=== PATIENT | female | born 1950 | race Caucasian/White ===

== ENCOUNTER 2020-03-10 12:35 | Emergency (ER) | payer MEDICARE, OTHER ==
[~2020-03-10] VITALS: Ht 165.1 cm; Wt 77.1 kg
--- OUTSIDE RECORDS SUMMARY | ~2020-03-10 | XMS | Encounter Summary ---
Demographics + + + | Address | [address] | | | [place] [address] | + + + | Home Phone | | + + + | Preferred Language | Unknown | + + + | Marital Status | Unknown | + + + | Druze Affiliation | Unknown | + + + | Race | Unknown | + + + | Ethnic Group | Unknown | + + + Author + + + | Author | [facility] | + + + | Organization | [facility] | + + + | Address | Unknown | + + + | Phone | Unavailable | + + + Care Team Providers + +------+ + | Care Automatic Data Processing Planner Name | Role | Phone | + +------+ + PCP | Unavailable | + +------+ + Encounter Details +--------+ + + + + | Date | Type | Department | Care Team | Description | +--------+ + + + + | 08/10/ | Outside | Neurophysiology | Jassi Reich, | | | 2010 | Referral | EEG at [facility] [address] | DO [address] | | | | Order | [address] | [place], [place] | | | | | [facility] | [address] | | | | | [place], [facility] Floor | [phone] | | | | | [place], [place] | | | | | | [address] | | | | | | [phone] | | | +--------+ + + + + Social History + +-------+ +--------+------+ | Tobacco Use | Types | Packs/Day | Years | Date | | | | | Used | | + +-------+ +--------+------+ | Never Assessed | | | | | + +-------+ +--------+------+ + + + | Sex Assigned at | Date Recorded | | | | + + + | Not on file | | + + + documented as of this encounter Plan of Treatment Not on filedocumented as of this encounter Procedures + +--------+ + + + | Procedure Name | Priori | Date/Time | Associated Diagnosis | Comments | | | ty | | | | + +--------+ + + + | EEG ROUTINE | Routin | 08/10/2010 | | Results for this | | | e | | | procedure are in the | | | | | | results section. | + +--------+ + + + documented in this encounter Results EEG ROUTINE (08/10/2010) + + | Specimen | + + | | + + + + + | Narrative | Performed At | + + + | Patient Name: Crystal Parr Date of : 1950 Medical | | | Record Number: [id number] Date of Test: 08/10/2010 Place of | | | Service: [facility] ROUTINE EEG Database type: | | | History: 59 year old woman with reported history of possible syncope | | | Medications: Aspirin, prilosec, zyrtec, celexa Interpretation: In | | | the maximally alert state, there is a reactive 11-12 Hz posterior | | | dominant rhythm of low amplitude, with lower amplitude faster | | | frequencies present symmetrically in both hemispheres. There were | | | electrodeThe patient entered into the drowsy state, but no segment of | | | stage I or stage II sleep was recorded. No focal slowing or | | | epileptiform discharges were present. Hyperventilation was | | | performed for 3 minutes with no abnormal responses. Photic | | | stimulation produced no photoparoxysmal discharges or other abnormal | | | responses. EKG showed normal sinus rhythm throughout the | | | recording. Impression: This is a normal awake and drowsy EEG. | | | Electronically signed on 08/10/2010 at 4:16 PM MICKI THOMAS MD. | | + + + documented in this encounter Visit Diagnoses Not on filedocumented in this encounter"
--- OUTSIDE RECORDS SUMMARY | ~2020-03-10 | XMS | Encounter Summary ---
Demographics + + + | Address | [address] [place] [address] RD | | | [place] [address] | + + + | Home Phone | | + + + | Preferred Language | Unknown | + + + | Marital Status | Single | + + + | Scientology Affiliation | Unknown | + + + | Race | White | + + + | Ethnic Group | Not or | + + + Author + + + | Author | [facility] | | | and [place] | + + + | Organization | [facility] | | | and [place] | + + + | Address | Unknown | + + + | Phone | Unavailable | + + + Support + + +---------+ + | Name | Relationship | Address | Phone | + + +---------+ + | Bryce Araujo | ECON | Unknown | | + + +---------+ + | Nishi Juan M | ECON | Unknown | | + + +---------+ + Care Team Providers + +------+ + | Care Safety Risk Lead Name | Role | Phone | + +------+ + PCP | Unavailable | + +------+ + Encounter Details +--------+ + + + + | Date | Type | Department | Care Team | Description | +--------+ + + + + | 05/11/ | Hospital | [facility] | | | | 2000 - | Encounter | MED CTR CANCER | | | | | | CENTER [address] | | | | 06/29/ | | [place] | | | | 2000 | | [address] | | | | | | [phone] | | | +--------+ + + + [...] Not on filedocumented as of this encounter Visit Diagnoses Not on filedocumented in this encounter"
--- OUTSIDE RECORDS SUMMARY | ~2020-03-10 | XMS | Encounter Summary ---
Demographics + + + | Address | [address] [place] [address] RD | | | [place] [address] | + + + | Home Phone | | + + + | Preferred Language | Unknown | + + + | Marital Status | Single | + + + | Rastafari Affiliation | Unknown | + + + | Race | White | + + + | Ethnic Group | Not or | + + + Author + + + | Author | [facility] | | | and [place] | + + + | Organization | [facility] | | | and [...] Team Providers + +------+ + | Care Hydraulic Press Operator Name | Role | Phone | + +------+ + PCP | Unavailable | + +------+ + Encounter Details +--------+ + + + + | Date | Type | Department | Care Team | Description | +--------+ + + + + | 06/05/ | Hospital | [facility] | | | | 2005 - | Encounter | MED CTR CANCER | | | | | | CENTER [address] | | | | 06/29/ | | [place] | | | | 2005 | | [address] | | | | | | [phone] | | | +--------+ + + + [...]
--- OUTSIDE RECORDS SUMMARY | ~2020-03-10 | XMS | Encounter Summary ---
Demographics + + + | Address | [address] [place] [address] RD | | | [place] [address] | + + + | Home Phone | | + + + | Preferred Language | Unknown | + + + | Marital Status | Single | + + + | Rastafarian Affiliation | Unknown | + + + | Race | White | + + + | Ethnic Group | Not or | + + + Author + + + | Author | [facility] | | | and [place] | + + + | Organization | [facility] | | [...] Team Providers + +------+ + | Care Medical Laboratory Technicians Name | Role | Phone | + +------+ + PCP | Unavailable | + +------+ + Encounter Details +--------+ + + + + | Date | Type | Department | Care Team | Description | +--------+ + + + + | 05/17/ | Hospital | [facility] | | | | 2002 - | Encounter | MED CTR CANCER | | | | | | CENTER [address] | | | | 06/25/ | | [place] | | | | 2002 | | [address] | | | | | | [phone] | | | +--------+ + + + [...]
--- OUTSIDE RECORDS SUMMARY | ~2020-03-10 | XMS | Encounter Summary ---
Demographics + + + | Address | [address] [place] [address] RD | | | [place] [address] | + + + | Home Phone | | + + + | Preferred Language | Unknown | + + + | Marital Status | Single | + + + | Sabianist Affiliation | Unknown | + + + | Race | White | + + + | Ethnic Group | Not or | + + + Author + + + | Author | [facility] | | | and [place] | + + + | Organization | [facility] | | | and [...] Team Providers + +------+ + | Care Returned Item Clerk Name | Role | Phone | + +------+ + PCP | Unavailable | + +------+ + Encounter Details +--------+ + + + + | Date | Type | Department | Care Team | Description | +--------+ + + + + | 11/17/ | Hospital | [facility] | | | | 2002 - | Encounter | MED CTR CANCER | | | | | | CENTER [address] | | | | 03/10/ | | [place] | | | | 2002 | | [address] | | | | | | [phone] | | | +--------+ + + + [...]
--- OUTSIDE RECORDS SUMMARY | ~2020-03-10 | XMS | Encounter Summary ---
Demographics + + + | Address | [address] [place] [address] RD | | | [place] [address] | + + + | Home Phone | | + + + | Preferred Language | Unknown | + + + | Marital Status | Single | + + + | Anglican Affiliation | Unknown | + + + | Race | White | + + + | Ethnic Group | Not or | + + + Author + + + | Author | [facility] | | | and [place] | + + + | Organization | [facility] | | | [...] Team Providers + +------+ + | Care Transfer Station Attendant Name | Role | Phone | + +------+ + | Kartik Tran MD | PCP | | + +------+ + Encounter Details +--------+ + + + + | Date | Type | Department | Care Team | Description | +--------+ + + + + | 01/27/ | Orders Only | [facility] | Marc Kartik | | | 2018 | | CONVERSION [address] | MD [address] | | | | [address] | [place] | | | | | [place], [place] | [place] [address] | | | | | [address] | [phone] | | | | | [phone] | | | +--------+ + + + + Social History + +-------+ +--------+------+ | Tobacco Use | Types | Packs/Day | Years | Date | | | | | Used | | + +-------+ +--------+------+ | Never Smoker | | | | | + +-------+ [...] | + +--------+ + + + | ECHO INTERPRETATION | Routin | 01/27/2019 | | Results for this | | OF OUTSIDE FILMS | e | 12:08 PM | | procedure are in the | | | | PDT | | results section. | + +--------+ + + + documented in this encounter Results ECHO Interpretation of Outside Films (01/27/2019 12:08 PM PDT) + + | Specimen | + + | | + + + + + | Impressions | Performed At | + + + | 1. Overall left ventricular systolic function is normal with an EF | | | between 60 - 65%. 2. There is mild concentric left ventricular | | | hypertrophy. 3. The right ventricle is normal in size and function. | | | 4. There is mild aortic regurgitation. | | + + + + + + | Narrative | Performed At | + + + | Patient Name: Crystal Parr Date of : 1950 | | | Performing Physician: Bk Garcia | | | | | | INDICATIONS FATIGUE CONCLUSIONS 1. | | | Overall left ventricular systolic function is normal with an EF | | | between 60 - 65%. 2. There is mild concentric left ventricular | | | hypertrophy. 3. The right ventricle is normal in size and function. | | | 4. There is mild aortic regurgitation. FINDINGS -------- ECG | | | rhythm: Sinus ECG rhythm: bradycardia (HR 46 - 53 bpm). Study: A | | | 2-dimensional transthoracic echocardiogram with m-mode, spectral and | | | color flow Doppler was perfomed at [facility]. Study: This was a technically | | | adequate study. Left Ventricle: Overall left ventricular systolic | | | function is normal with an EF between 60 - 65%. Left Ventricle: The | | | left ventricle cavity size is normal. Left Ventricle: There is mild | | | concentric left ventricular hypertrophy. Left Ventricle: No regional | | | wall motion abnormalities. Left Ventricle: The diastolic filling | | | pattern is normal for the age of the patient. Right Ventricle: The | | | right ventricle is normal in size and function. Left Atrium: The left | | | atrium is normal in size. Right Atrium: The right atrium is normal | | | in size. Aortic Valve: There is mild aortic regurgitation. Aortic | | | Valve: There is no evidence of aortic stenosis. Aortic Valve: The | | | aortic valve is trileaflet. Aortic Valve: Aortic valve is mildly | | | thickened and calcified. Aortic Valve: The aortic pressure half-time | | | is 826ms. Mitral Valve: Normal appearing mitral valve. Mitral Valve: | | | Mild mitral regurgitation is present. Mitral Valve: No evidence of | | | MVP. Tricuspid Valve: The tricuspid valve appears structurally | | | normal. Tricuspid Valve: Trace tricuspid regurgitation is present. | | | Tricuspid Valve: Pulmonary artery systolic pressure could not be | | | assessed due to the absence of adequate TR jet. Pulmonic Valve: | | | Pulmonic valve appears structurally normal. Pulmonic Valve: There is | | | trace-mild pulmonic regurgitation. Pericardium: There is no | | | pericardial effusion. IVC/Hepatic Veins: The inferior vena cava is | | | normal in size and collapses > 50 % with sniff, indicating normal | | | central venous pressures. Aorta: The aortic root, ascending aorta and | | | aortic arch are normal. Mass: No mass visualized Thrombus: No clot | | | visualized Thrombus: No vegetation visualized. Septum: No ASD | | | observed. Septum: No VSD observed. MEASUREMENTS | | | Ao asc: 3.25 cm Ao sinus: 3.[address] junct: 2.82 cm | | | IVC: 1.35 cm EDV(Teich): 90.34 ml IVSd: 1.06 cm LVIDd: | | | 4.45 cm LVPWd: 1.15 cm LVOT Area: 4.08 cm2 LVOT Diam: 2.28 | | | cm %FS: 31.82 % EF(Teich): 60.05 % ESV(Teich): 36.08 ml | | | LVIDs: 3.03 cm SV(Teich): 54.25 ml RV Major: 6.20 cm RV | | | Minor: 2.92 cm LVEF MOD A2C: 54.76 % SV MOD A2C: 29.76 ml | | | LVEF MOD A4C: 62.90 % SV MOD A4C: 44.11 ml EF Biplane: | | | 60.36 % LVEDV MOD BP: 63.66 ml LVESV MOD BP: 25.23 ml LVEDV | | | MOD A2C: 54.34 ml LVLd A2C: 6.98 cm LVEDV MOD A4C: 70.12 ml | | | LVLd A4C: 7.47 cm LVESV MOD A2C: 24.58 ml LVLs A2C: 6.32 | | | cm LVESV MOD A4C: 26.01 ml LVLs A4C: 6.37 cm LAESV(A-L): | | | 37.30 ml LAESV Index (A-L): 20.72 ml/m2 LAAs A2C: 9.14 cm2 | | | LAESV A-L A2C: 19.84 ml LALs A2C: 3.57 cm LAAs A4C: 17.19 | | | cm2 LAESV A-L A4C: 54.49 ml LALs A4C: 4.60 cm TAPSE: 1.76 | | | cm AR Dec Bell: 1.40 m/s2 AR Dec Time: 2847.18 ms AR maxPG: | | | 64.27 mmHg AR PHT: 825.68 ms AR Vmax: 4.00 m/s AV maxPG: | | | 4.79 mmHg AV meanP.33 mmHg AV Vmax: 1.09 m/s AV Vmean: | | | 0.72 m/s AV VTI: 22.61 cm LETY Vmax: 3.92 cm2 LETY (VTI): | | | 4.44 cm2 AVAI (Vmax): 0.00 cm2/m2 AVAI (VTI): 0.00 cm2/m2 | | | LVOT maxP.43 mmHg LVOT meanP.82 mmHg LVSI Dopp: | | | 55.83 ml/m2 LVSV Dopp: 100.51 ml LVOT Vmax: 1.05 m/s LVOT | | | Vmean: 0.61 m/s LVOT VTI: 24.62 cm MV A Gilbert: 0.48 m/s MV | | | Dec Bell: 2.43 m/s2 MV DecT: 210.55 ms MV E Gilbert: 0.51 m/s | | | MV E/A Ratio: 1.05 MV PHT: 61.06 ms MVA By PHT: 3.60 cm2 | | | Septal e': 0.06 m/s Septal E/e': 7.33 Lateral e': 0.08 m/s | | | Lateral E/e': 5.73 RAP: 5 mmHg RV s': 0.12 m/s | | | Brake Repair Mechanic: ADM Authenticated by: Bk Garcia Report Date/Time: | | | 01-27-2019 13:59:30 | | + + + + + | Procedure Note | + + | Jorge, Rad Conversion - 02/18/2019 12:45 PM PDT Patient Name: Janay Parr | | : 1950 Performing Physician: Bk Keyes | | Lehr INDICATIONS | | -FATIGUE CONCLUSIONS 1. Overall left ventricular systolic function is normal | | with an EF between 60 - 65%.2. There is mild concentric left ventricular hypertrophy.3. | | The right ventricle is normal in size and function.4. There is mild aortic | | regurgitation. FINDINGS--------ECG rhythm: SinusECG rhythm: bradycardia (HR 46 - 53 | | bpm).Study: A 2-dimensional transthoracic echocardiogram with m-mode, spectral and color | | flow Doppler was perfomed at [facility].Study: This was a technically adequate study.Left | | Ventricle: Overall left ventricular systolic function is normal with an EF between 60 - | | 65%.Left Ventricle: The left ventricle cavity size is normal.Left Ventricle: There is | | mild concentric left ventricular hypertrophy.Left Ventricle: No regional wall motion | | abnormalities.Left Ventricle: The diastolic filling pattern is normal for the age of the | | patient.Right Ventricle: The right ventricle is normal in size and function.Left | | Atrium: The left atrium is normal in size.Right Atrium: The right atrium is normal in | | size.Aortic Valve: There is mild aortic regurgitation.Aortic Valve: There is no evidence | | of aortic stenosis.Aortic Valve: The aortic valve is trileaflet.Aortic Valve: Aortic | | valve is mildly thickened and calcified.Aortic Valve: The aortic pressure half-time is | | 826ms.Mitral Valve: Normal appearing mitral valve.Mitral Valve: Mild mitral | | regurgitation is present.Mitral Valve: No evidence of MVP.Tricuspid Valve: The tricuspid | | valve appears structurally normal.Tricuspid Valve: Trace tricuspid regurgitation is | | present.Tricuspid Valve: Pulmonary artery systolic pressure could not be assessed due to | | the absence of adequate TR jet.Pulmonic Valve: Pulmonic valve appears structurally | | normal.Pulmonic Valve: There is trace-mild pulmonic regurgitation.Pericardium: There is | | no pericardial effusion.IVC/Hepatic Veins: The inferior vena cava is normal in size and | | collapses > 50 % with sniff, indicating normal central venous pressures.Aorta: The | | aortic root, ascending aorta and aortic arch are normal.Mass: No mass | | visualizedThrombus: No clot visualizedThrombus: No vegetation visualized.Septum: No ASD | | observed.Septum: No VSD observed. MEASUREMENTS Ao asc: 3.25 cmAo sinus: | | 3.[address] junct: 2.82 cmIVC: 1.35 cmEDV(Teich): 90.34 mlIVSd: 1.06 cmLVIDd: | | 4.45 cmLVPWd: 1.15 cmLVOT Area: 4.08 [id number] Diam: 2.28 cm%FS: 31.82 | | %EF(Teich): 60.05 %ESV(Teich): 36.08 mlLVIDs: 3.03 cmSV(Teich): 54.25 mlRV | | Major: 6.20 cmRV Minor: 2.92 cmLVEF MOD A2C: 54.76 %SV MOD A2C: 29.76 mlLVEF MOD | | A4C: 62.90 %SV MOD A4C: 44.11 mlEF Biplane: 60.36 %LVEDV MOD BP: 63.66 mlLVESV | | MOD BP: 25.23 mlLVEDV MOD A2C: 54.34 mlLVLd A2C: 6.98 cmLVEDV MOD A4C: 70.12 | | mlLVLd A4C: 7.47 cmLVESV MOD A2C: 24.58 mlLVLs A2C: 6.32 cmLVESV MOD A4C: 26.01 | | mlLVLs A4C: 6.37 cmLAESV(A-L): 37.30 mlLAESV Index (A-L): 20.72 ml/m2LAAs A2C: | | 9.14 [id number] A-L A2C: 19.84 mlLALs A2C: 3.57 cmLAAs A4C: 17.19 [id number] A-L A4C: | | 54.49 mlLALs A4C: 4.60 cmTAPSE: 1.76 cmAR Dec Bell: 1.40 m/s2AR Dec Time: | | 2847.18 msAR maxP.27 mmHgAR PHT: 825.68 msAR Vmax: 4.00 m/Patricia maxP.79 | | mmHgAV meanP.33 mmHgAV Vmax: 1.09 m/Patricia Vmean: 0.72 m/Patricia VTI: 22.61 cmAVA | | Vmax: 3.92 cm2AVA (VTI): 4.44 [id number] (Vmax): 0.00 cm2/m2AVAI (VTI): 0.00 | | cm2/m2LVOT maxP.43 mmHgLVOT meanP.82 mmHgLVSI Dopp: 55.83 ml/m2LVSV Dopp: | | 100.51 mlLVOT Vmax: 1.05 m/sLVOT Vmean: 0.61 m/sLVOT VTI: 24.62 cmMV A Gilbert: | | 0.48 m/sMV Dec Bell: 2.43 m/s2MV DecT: 210.55 msMV E Gilbert: 0.51 m/sMV E/A Ratio: | | 1.05MV PHT: 61.06 msMVA By PHT: 3.60 [id number] e': 0.06 m/sSeptal E/e': | | 7.33Lateral e': 0.08 m/sLateral E/e': 5.73RAP: 5 mmHgRV s': 0.12 m/s | | Brake Repair Mechanic: ADMAuthenticated by: Bk Anderson Date/Time: 01-27-2019 13:59:30 | | IMPRESSION: 1. Overall left ventricular systolic function is normal with an EF between | | 60 - 65%.2. There is mild concentric left ventricular hypertrophy.3. The right ventricle | | is normal in size and function.4. There is mild aortic regurgitation. | |Thrombus: No vegetation visualized. | |Septum: No ASD observed. | |Septum: No VSD observed. | | | |MEASUREMENTS | | | |Ao asc: 3.25 cm | |Ao sinus: 3.56 cm | |Ao st junct: 2.82 cm | |IVC: 1.35 cm | |EDV(Teich): 90.34 ml | |IVSd: 1.06 cm | |LVIDd: 4.45 cm | |LVPWd: 1.15 cm | |LVOT Area: 4.08 cm2 | |LVOT Diam: 2.28 cm | |%FS: 31.82 % | |EF(Teich): 60.05 % | |ESV(Teich): 36.08 ml | |LVIDs: 3.03 cm | |SV(Teich): 54.25 ml | |RV Major: 6.20 cm | |RV Minor: 2.92 cm | |LVEF MOD A2C: 54.76 % | |SV MOD A2C: 29.76 ml | |LVEF MOD A4C: 62.90 % | |SV MOD A4C: 44.11 ml | |EF Biplane: 60.36 % | |LVEDV MOD BP: 63.66 ml | |LVESV MOD BP: 25.23 ml | |LVEDV MOD A2C: 54.34 ml | |LVLd A2C: 6.98 cm | |LVEDV MOD A4C: 70.12 ml | |LVLd A4C: 7.47 cm | |LVESV MOD A2C: 24.58 ml | |LVLs A2C: 6.32 cm | |LVESV MOD A4C: 26.01 ml | |LVLs A4C: 6.37 cm | |LAESV(A-L): 37.30 ml | |LAESV Index (A-L): 20.72 ml/m2 | |LAAs A2C: 9.14 cm2 | |LAESV A-L A2C: 19.84 ml | |LALs A2C: 3.57 cm | |LAAs A4C: 17.19 cm2 | |LAESV A-L A4C: 54.49 ml | |LALs A4C: 4.60 cm | |TAPSE: 1.76 cm | |AR Dec Bell: 1.40 m/s2 | |AR Dec Time: 2847.18 ms | |AR maxP.27 mmHg | |AR PHT: 825.68 ms | |AR Vmax: 4.00 m/s | |AV maxP.79 mmHg | |AV meanP.33 mmHg | |AV Vmax: 1.09 m/s | |AV Vmean: 0.72 m/s | |AV VTI: 22.61 cm | |LETY Vmax: 3.92 cm2 | |LETY (VTI): 4.44 cm2 | |AVAI (Vmax): 0.00 cm2/m2 | |AVAI (VTI): 0.00 cm2/m2 | |LVOT maxP.43 mmHg | |LVOT meanP.82 mmHg | |LVSI Dopp: 55.83 ml/m2 | |LVSV Dopp: 100.51 ml | |LVOT Vmax: 1.05 m/s | |LVOT Vmean: 0.61 m/s | |LVOT VTI: 24.62 cm | |MV A Gilbert: 0.48 m/s | |MV Dec Bell: 2.43 m/s2 | |MV DecT: 210.55 ms | |MV E Gilbert: 0.51 m/s | |MV E/A Ratio: 1.05 | |MV PHT: 61.06 ms | |MVA By PHT: 3.60 cm2 | |Septal e': 0.06 m/s | |Septal E/e': 7.33 | |Lateral e': 0.08 m/s | |Lateral E/e': 5.73 | |RAP: 5 mmHg | |RV s': 0.12 m/s | | | |Brake Repair Mechanic: ADM | |Authenticated by: Bk Garcia | |Report Date/Time: 01-27-2019 13:59:30 | | | |IMPRESSION: | |1. Overall left ventricular systolic function is normal with an EF between 60 - 65%. | |2. There is mild concentric left ventricular hypertrophy. | |3. The right ventricle is normal in size and function. | |4. There is mild aortic regurgitation. | + + documented in this encounter Visit Diagnoses Not on filedocumented in this encounter"
--- OUTSIDE RECORDS SUMMARY | ~2020-03-10 | XMS | Encounter Summary ---
Demographics + + + | Address | [address] [place] [address] RD | | | [place] [address] | + + + | Home Phone | | + + + | Preferred Language | Unknown | + + + | Marital Status | Single | + + + | Shinto Affiliation | Unknown | + + + | Race | White | + + + | Ethnic Group | Not or | + + + Author + + + | Author | [facility] | | | and [place] | + + + | Organization | [facility] | | | [...] Team Providers + +------+ + | Care Biopsychologist Name | Role | Phone | + +------+ + PCP | Unavailable | + +------+ + Encounter Details +--------+ + + + + | Date | Type | Department | Care Team | Description | +--------+ + + + + | 08/01/ | Hospital | [facility] | | | | 2010 - | Encounter | MED CTR GENERIC OP | | | | | | CONV DEPT [address] | | | | 08/23/ | | [place], | | | | 2010 | | [place] [address] | | | | | | [phone] | | | +--------+ + + + [...]
--- OUTSIDE RECORDS SUMMARY | ~2020-03-10 | XMS | Encounter Summary ---
Demographics + + + | Address | [address] [place] [address] RD | | | [place] [address] | + + + | Home Phone [...] Author + + + | Author | [facility] | | | and [place] | + + + | Organization | [facility] | | | [...] Team Providers + +------+ + | Care Manager Sales Support Name | Role | Phone | + +------+ + PCP | Unavailable | + +------+ + Encounter Details +--------+ + + + + | Date | Type | Department | Care Team | Description | +--------+ + + + + | 12/26/ | Hospital | [facility] | | | | 1999 - | Encounter | MED CTR CANCER | | | | | | CENTER [address] | | | | 06/14/ | | [place] | | | | 1999 | | [address] | | | | | | [phone] | | | +--------+ + + + [...]
--- OUTSIDE RECORDS SUMMARY | ~2020-03-10 | XMS | Encounter Summary ---
Demographics + + + | Address | [address] [place] [address] RD | | | [place] [address] | + + + | Home Phone | | + + + | Preferred Language | Unknown | + + + | Marital Status | Single | + + + | Uatsdin Affiliation | Unknown | + + + | Race | White | + + + | Ethnic Group | Not or | + + + Author + + + | Author | [facility] | | | and [place] | + + + | Organization | [facility] | | | and [...] Team Providers + +------+ + | Care Emergency Department Rn Name | Role | Phone | + +------+ + PCP | Unavailable | + +------+ + Encounter Details +--------+ + + + + | Date | Type | Department | Care Team | Description | +--------+ + + + + | 06/25/ | Hospital | [facility] | | | | 1999 | Encounter | MED CTR MP INTRA OP | | | | | | [address] | | | | | | [place] | | | | | | [address] | | | | | | [phone] | | | +--------+ + + + [...]
--- OUTSIDE RECORDS SUMMARY | ~2020-03-10 | XMS | Encounter Summary ---
Demographics + + + | Address | [address] [place] [address] RD | | | [place] [address] | + + + | Home Phone [...] + + + | Author | [facility] | | | and [place] | + + + | Organization | [facility] | | | [...] Team Providers + +------+ + | Care Housing Coordinator Name | Role | Phone | + +------+ + PCP | Unavailable | + +------+ + Encounter Details +--------+ + + + + | Date | Type | Department | Care Team | Description | +--------+ + + + + | 05/15/ | Hospital | [facility] | | | | 2003 - | Encounter | [facility] | | | | | | CENTER [address] | | | | 06/28/ | | [place] | | | | 2003 | | [address] | | | | | | [phone] | | | +--------+ + + + [...]
--- OUTSIDE RECORDS SUMMARY | ~2020-03-10 | XMS | Encounter Summary ---
Demographics + + + | Address | [address] [place] [address] RD | | | [place] [address] | + + + | Home Phone | | + + + | Preferred Language | Unknown | + + + | Marital Status | Single | + + + | Islam Affiliation | Unknown | + + + | Race | White | + + + | Ethnic Group | Not or | + + + Author + + + | Author | [facility] | | | and [place] | + + + | Organization | [facility] | | | [...] Team Providers + +------+ + | Care Home Connect Lpn Name | Role | Phone | + +------+ + PCP | Unavailable | + +------+ + Encounter Details +--------+ + + + + | Date | Type | Department | Care Team | Description | +--------+ + + + + | 12/ | Hospital | [facility] | Bob Walt Iveth | | | 2000 | Encounter | MED CTR SLEEP | [place] | | | | | [place] [address] | [address] | | | | | [place], [place] | [place] [address] | | | | | [address] | [phone] | | | | | [phone] | | | +--------+ + + + [...]
--- OUTSIDE RECORDS SUMMARY | ~2020-03-10 | XMS | Clinical Summary ---
Demographics + + + | Address | [address] [place] [address] RD | | | [place] [address] | + + + | Home Phone | | + + + | Preferred Language | Unknown | + + + | Marital Status | Single | + + + | Scientologist Affiliation | Unknown | + + + | Race | White | + + + | Ethnic Group | Not or | + + + Author + + + | Author | [facility] | | | and [place] | + + + | Organization | [facility] | | | and [place] | + + + | Address | Unknown | + + + | Phone | Unavailable | + + + Support + + +---------+ + | Name | Relationship | Address | Phone | + + +---------+ + | Bryce Araujo | ECON | Unknown | | + + +---------+ + | Nishi Mcgowan | ECON | Unknown | | + + +---------+ + Care Team Providers + +------+ + | Care Dance Professor Name | Role | Phone | + +------+ + | Kartik Tran MD | PCP | | + +------+ + Allergies No Known Allergies Medications + + + +---------+------+------+-------+ | Medication | Sig | Dispensed | Refills | Star | End | Statu | | | | | | t | Date | s | | | | | | Date | | | + + + +---------+------+------+-------+ | lisinopril | Take 20 mg by mouth | | 0 | | | Activ | | (PRINIVIL, ZESTRIL) | Daily. | | | | | e | | 20 mg tablet | | | | | | | + + + +---------+------+------+-------+ | DULoxetine | Take 20 mg by mouth | | 0 | | | Activ | | (CYMBALTA) [address] | Daily. | | | | | e | | capsule | | | | | | | + + + +---------+------+------+-------+ | cholecalciferol | Take 75 mcg by mouth | | 0 | | | Activ | | (VITAMIN D-3) 75 mcg | Daily. | | | | | e | | (3,000 units) | | | | | | | | tablet | | | | | | | + + + +---------+------+------+-------+ | aspirin 81 MG EC | Take 81 mg by mouth | | 0 | | | Activ | | tablet | Daily. | | | | | e | + + + +---------+------+------+-------+ | Multiple | Take by mouth. | | 0 | | | Activ | | Vitamins-Minerals | | | | | | e | | (MULTIVITAMIN ADULT | | | | | | | | PO) | | | | | | | + + + +---------+------+------+-------+ Active Problems Not on file Family History + +---------+--------+ + | Relation | Name | Status | Comments | + +---------+--------+ + | Father | unknown | Other | | + +---------+--------+ + | Mother | unknown | Other | | + +---------+--------+ + Social History + +-------+ +--------+------+ | Tobacco Use | Types | Packs/Day | Years | Date | | | | | Used | | + +-------+ +--------+------+ | Never Smoker | | | | | + +-------+ +--------+------+ + +---+---+---+ | Smokeless Tobacco: | | | | | Never Used | | | | + +---+---+---+ + + +---------+ + | Alcohol Use | Drinks/Week | oz/Week | Comments | + + +---------+ + | Not Currently | | | | + + +---------+ + + + + + | Alcohol Habits | Answer | Date Recorded | + + + + | How often do you have a drink containing | Never | 06/03/2019 | | alcohol? | | | + + + + | How many drinks containing alcohol do you | Not asked | | | have on a typical day when you are | | | | drinking? | | | + + + + | How often do you have six or more drinks on | Not asked | | | one occasion? | | | + + + + + + + | Sex Assigned at | Date Recorded | | | | + + + | Not on file | | + + + Last Filed Vital Signs + + + + + | Vital Sign | Reading | Time Taken | Comments | + + + + + | Blood Pressure | 122/74 | 09/02/2019 8:50 AM | | | | | PST | | + + + + + | Pulse | 60 | 09/02/2019 8:50 AM | | | | | PST | | + + + + + | Temperature | - | - | | + + + + + | Respiratory Rate | - | - | | + + + + + | Oxygen Saturation | 98% | 09/02/2019 8:50 AM | | | | | PST | | + + + + + | Inhaled Oxygen | - | - | | | Concentration | | | | + + + + + | Weight | 78 kg (172 lb) | 09/02/2019 8:50 AM | | | | | PST | | + + + + + | Height | 165.1 cm (5' 5") | 09/02/2019 8:50 AM | | | | | PST | | + + + + + | Body Mass Index | 28.62 | 09/02/2019 8:50 AM | | | | | PST | | + + + + + Plan of Treatment + + +-------+ + | Health Maintenance | Due Date | Last | Comments | | | | Done | | + + +-------+ + | Hepatitis C | | | | | Screening | 0 | | | + + +-------+ + | Med Mgmt: Cr | | | | | | 0 | | | + + +-------+ + | Med Mgmt: K | | | | | | 0 | | | + + +-------+ + | Med Mgmt: Vit D | | | | | | 0 | | | + + +-------+ + | Med Mgmt: eGFR | | | | | | 0 | | | + + +-------+ + | Medication | | | | | Management | 0 | | | + + +-------+ + | Vaccine: | | | | | Dtap/Tdap/Td (1 - | 9 | | | | Tdap) | | | | + + +-------+ + | Colorectal Cancer | | | | | Screening | 0 | | | | (Colonoscopy) | | | | + + +-------+ + | Vaccine: Zoster (1 | | | | | of 2) | 0 | | | + + +-------+ + | Breast Cancer | | | | | Screening | 5 | | | + + +-------+ + | Vaccine: | | | | | Pneumococcal 65+ (1 | 5 | | | | of 1 - PPSV23) | | | | + + +-------+ + | Adult Annual | | | | | Wellness Visit | 9 | | | + + +-------+ + | Statin Therapy | | | | | (optimal intensity) | 9 | | | + + +-------+ + | Vaccine: Influenza | | | | | (#1) | 0 | | | + + +-------+ + Results Not on filefrom Last 3 Months Insurance + +--------+ +--------+ +---------+--------+ | Payer | Benefi | Subscriber | Effect | Phone | Address | Type | | | t Plan | ID | humza | | | | | | / | | Dates | | | | | | Group | | | | | | + +--------+ +--------+ +---------+--------+ | MEDICARE | MEDICA | [id number] | 11/29/19 | [phone] | | Medica | | | RE | | 15-Pre | 5 | | re | | | PART A | | sent | | | | | | AND B | | | | | | + +--------+ +--------+ +---------+--------+ | [employer] | MUTUAL | [id number] | 11/29/19 | [phone] | | Indemn | | | AND | | 20-Pre | 0 | | ity | | | UNITED | | sent | | | | | | [employer] [place] | | | | | | | | MDCR | | | | | | | | SUPPL | | | | | | + +--------+ +--------+ +---------+--------+ + +--------+ +--------+ + + | Guarantor Name | Accoun | Relation to | Date | Phone | Billing Address | | | t Type | Patient | of | | | | | | | | | | + +--------+ +--------+ + + | Crystal Parr | Person | Self [birth year] | [address] | | | al/Fam [birth year] | 1951 | [phone] | [place], [place] | | | [place] | | | [address] (Home) | [phone] | + +--------+ +--------+ + + | Crystal Parr | Person | Self | [birth year] | | [address] | | | al/Fam | | 1951 | [phone] | [place], [place] | | | [place] | | | [address] (Home) | [phone] | + +--------+ +--------+ + + Advance Directives + + + + + | Type | Date Recorded | Patient | Explanation | | | | Shipping Clerk Crating | | + + + + + | Power of | | | | | Gift Shop Manager | | | | + + + + + | Advance | | | | | Directive | | | | + + + + +
--- OUTSIDE RECORDS SUMMARY | ~2020-03-10 | XMS | Encounter Summary ---
Demographics + + + | Address | [address] [place] [address] RD | | | [place] [address] | + + + | Home Phone | | + + + | Preferred Language | Unknown | + + + | Marital Status | Single | + + + | Yazidism Affiliation | Unknown | + + + | Race | White | + + + | Ethnic Group | Not or | + + + Author + + + | Author | [facility] | | | and [place] | + + + | Organization | [facility] | | | and [...] Team Providers + +------+ + | Care Layer Out Name | Role | Phone | + +------+ + PCP | Unavailable | + +------+ + Encounter Details +--------+ + + + + | Date | Type | Department | Care Team | Description | +--------+ + + + + | 11/02/ | Hospital | [facility] | | | | 2001 - | Encounter | MED CTR CANCER | | | | | | CENTER [address] | | | | 01/31/ | | [place] | | | | 2001 | | [address] | | | | | | [phone] | | | +--------+ + + + [...]
--- OUTSIDE RECORDS SUMMARY | ~2020-03-10 | XMS | Clinical Summary ---
Demographics + + + | Address | [address] | | | [place] [address] | + + + | Home Phone | | + + + | Preferred Language | Unknown | + + + | Marital Status | Unknown | + + + | Presybeterian Affiliation | Unknown | + + + | Race | Unknown | + + + | Ethnic Group | Unknown | + + + Author + + + | Author | NON REVENUE LOCATIONS | + + + | Organization | NON REVENUE LOCATIONS | + + + | Address | Unknown | + + + | Phone | Unavailable | + + + Care Team Providers + +------+ + | Care Compression Molding Machine Tender Name | Role | Phone | + +------+ + PCP | Unavailable | + +------+ + Source Comments GERALDO is fully live on both [facility] and [facility] InPatient.[facility] Allergies Not on File Medications Not on file Active Problems Not on file Social History + +-------+ +--------+------+ | Tobacco [...] + + + Last Filed Vital Signs Not on file Plan of Treatment + + +-------+ + | Health Maintenance | Due Date | Last | Comments | | | | Done | | + + +-------+ + | Pneumococcal | | | | | vaccination (1 of 1 | 5 | | | | - PPSV23) | | | | + + +-------+ + | Influenza (Flu) | | | | | vaccination (#1) | 0 | | | + + +-------+ + Results Not on filefrom Last 3 Months"
--- OUTSIDE RECORDS SUMMARY | ~2020-03-10 | XMS | Encounter Summary ---
Demographics + + + | Address | [address] [place] [address] RD | | | [place] [address] | + + + | Home Phone | | + + + | Preferred Language | Unknown | + + + | Marital Status | Single | + + + | Mormon Affiliation | Unknown | + + + | Race | White | + + + | Ethnic Group | Not or | + + + Author + + + | Author | [facility] | | | and [place] | + + + | Organization | [facility] | | | [...] Team Providers + +------+ + | Care Electric Wirer Name | Role | Phone | + +------+ + PCP | Unavailable | + +------+ + Encounter Details +--------+ + + + + | Date | Type | Department | Care Team | Description | +--------+ + + + + | 05/18/ | Hospital | [facility] | | | | 2001 - | Encounter | MED CTR CANCER | | | | | | CENTER [address] | | | | 06/25/ | | [place] | | | | 2001 | | [address] | | | | | | [phone] | | | +--------+ + + + [...]
--- OUTSIDE RECORDS SUMMARY | ~2020-03-10 | XMS | Encounter Summary ---
Demographics + + + | Address | [address] [place] [address] RD | | | [place] [address] | + + + | Home Phone | | + + + | Preferred Language | Unknown | + + + | Marital Status | Single | + + + | Buddhist Affiliation | Unknown | + + + | Race | White | + + + | Ethnic Group | Not or | + + + Author + + + | Author | [facility] | | | and [place] | + + + | Organization | [facility] | | | [...] Team Providers + +------+ + | Care Boat Worker Name | Role | Phone | + +------+ + | Kartik Tran MD | PCP | | + +------+ + Reason for Visit + + + | Reason | Comments | + + + | New Patient | NEW PATIENT | + + + Encounter Details +--------+---------+ + + + | Date | Type | Department | Care Team | Description | +--------+---------+ + + + | 06/03/ | Office | [facility] | Gloria Patton DO | Essential | | 2019 | Visit | CARDIOLOGY [place] | [address] | hypertension | | | | [address] | [place], [place] | (Primary Dx); | | | | [address] | [address] | Syncope and | | | | [place], [place] | | collapse; Fatigue, | | | | [address] | | unspecified type; | | | | [phone] | | Encounter for | | | | | | consultation | +--------+---------+ + + + Social History + +-------+ [...] + + documented as of this encounter Last Filed Vital Signs + + + + + | Vital Sign | Reading | Time Taken | Comments | + + + + + | Blood Pressure | 106/60 | 06/03/2019 9:23 AM | | | | | PST | | + + + + + | Pulse | 75 | 06/03/2019 9:23 AM | | | | | PST | | + + + + + | Temperature | - | - | | + + + + + | Respiratory Rate | - | - | | + + + + + | Oxygen Saturation | 96% | 06/03/2019 9:23 AM | | | | | PST | | + + + + + | Inhaled Oxygen | - | - | | | Concentration | | | | + + + + + | Weight | 77.1 kg (170 lb) | 06/03/2019 9:23 AM | | | | | PST | | + + + + + | Height | 165.1 cm (5' 5") | 06/03/2019 9:23 AM | | | | | PST | | + + + + + | Body Mass Index | 28.29 | 06/03/2019 9:23 AM | | | | | PST | | + + + + + documented in this encounter Patient Instructions Patient Instructions Gloria Patton DO - 06/03/2019 9:20 AM PST- Make sure to stay hydrate d throughout the day. - Try wearing at least knee compression stockings. - Please keep a one week blood pressure log. - Will follow up on the results of your Zio patch monitor. - Follow up in 3 months documented in this encounter Progress Notes Gloria Patton DO - 06/03/2019 9:20 AM PST [facility] Cardiology Cardiology Consult Note Reason for Consultation: fatigue Requesting Physician: Dr. 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 The patient re ports that for the last several years, she has had issues with lightheadedness and somewhat chronic fatigue. She is currently wearing a Zio patch monitor, which was placed due to palp itations. She reports that she has had intermittent symptoms of fluttering, lightheadednes s and heart pounding while wearing the Zio patch. She plans on taking it off tomorrow and s ending it in. She had a syncopal episode in 2012. 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 She did not have any significant prodr ome and fell backwards and passed out. She had no postictal symptoms after this. She notic es that episodes of lightheadedness are worse whenever she is dehydrated and she notice the m more frequently the day after call days. She goes through periods where her lightheadedne ss is worse. Some weeks, she will have symptoms every other day and other week, she will no t have any symptoms at all. She notices more symptoms when she is dehydrated and less sympt oms whenever she makes sure to stay hydrated. She has never tried compression stockings in the past. Looking back at some of the workup that she had from 2014, she had a bilateral c arotid ultrasound, which was negative. She also underwent an exercise nuclear stress test, which was notable for an anterior perfusion abnormality. Coronary angiography was discussed at that time, but the patient declined as she was relatively asymptomatic. She describes h erself as an active individual. She walks up to 3 miles a day including hills without any s ymptoms of chest pain. She does admit to occasional shortness of breath that is not necess arily associated with exertion. She denies any lower extremity swelling, orthopnea, PND. H er blood pressures are usually elevated around the 130s-140s range. If she is having a "bad day," it will be into the 160s. She is currently being followed by Rheumatology for a poss ible history of lupus. She has been told in the past by a neurologist that she has POTS syn drome. The patient also reports that she has had positive orthostatic hypotension in the p ast. Review of Systems Constitutional: Positive for fatigue. HENT: Negative for nosebleeds. Eyes: Negative for visual disturbance. Respiratory: Negative for cough and shortness of breath. Cardiovascular: see HPI Gastrointestinal: Negative for nausea, vomiting, abdominal pain and blood in stool. Genitourinary: Negative for hematuria or dysuria. Musculoskeletal: Negative for myalgias, back pain and arthralgias. Skin: Negative for color change. Neurological: Negative for syncope and numbness. Hematological: Does not bruise/bleed easily. Psychiatric/Behavioral: The patient is not nervous/anxious. PAST MEDICAL & SURGICAL HISTORY Past Medical History: Diagnosis Date Angina pectoris ([facility]) Arrhythmia Atopic dermatitis Cancer of breast, female (HCC) Heart murmur Hyperlipidemia Hypertension POTS (postural orthostatic tachycardia syndrome) Syncope and collapse back in 2012 Uterine cancer (HCC) History reviewed. No pertinent surgical history. MEDICATIONS Home Medications Outpatient Encounter Medications as of 06/03/2019 Medication Sig Dispense Refill cholecalciferol (VITAMIN D-3) 75 mcg (3,000 units) tablet Take 75 mcg by mouth Daily. DULoxetine (CYMBALTA) [address] capsule Take 20 mg by mouth Daily. lisinopril (PRINIVIL, ZESTRIL) 20 mg tablet Take 20 mg by mouth Daily. No facility-administered encounter medications on file as of 06/03/2019. Allergies No Known Allergies FAMILY HISTORY History reviewed. No pertinent family history. Adopted SOCIAL HISTORY Social History Socioeconomic History Marital status: Single Spouse name: Not on file Number of children: Not on file Years of education: Not on file Highest education level: Not on file Occupational History Not on file Social Needs Financial resource strain: Not on file Food insecurity: Worry: Not on file Inability: Not on file Transportation needs: Medical: Not on file Non-medical: Not on file Tobacco Use Smoking status: Never Smoker Smokeless tobacco: Never Used Substance and Sexual Activity Alcohol use: Not Currently Frequency: Never Drug use: Never Comment: Drug use: No Sexual activity: Not on file Lifestyle Physical activity: Days per week: Not on file Minutes per session: Not on file Stress: Not on file Relationships Social connections: Talks on phone: Not on file Gets together: Not on file Attends latter-day service: Not on file Active member of club or organization: Not on file Attends meetings of clubs or organizations: Not on file Relationship status: Not on file Intimate partner violence: Fear of current or ex partner: Not on file Emotionally abused: Not on file Physically abused: Not on file Forced sexual activity: Not on file Other Topics Concern Not on file Social History Narrative Not on file PHYSICAL EXAM Vital Signs: BP 106/60 | Pulse 75 | Ht 1.651 m (5' 5") | Wt 77.1 kg (170 lb) | SpO2 96% | BMI 28.29 kg/m Physical Exam GENERAL: Well developed, well nourished, in no distress. Appears approximately stated age . HEENT: Normocephalic, atraumatic. EYES: PERRL, sclerae anicteric, no xanthelsasmas NECK: No JVD, lymphadenopathy, thyromegaly, bruits. Carotid pulses are 2+ bilaterally LUNGS: Clear bilaterally, with no rales, rhonchi or wheezing noted, respirations unlabored HEART: Nondisplaced PMI, regular rate and rhythm, S1, S2 normal. No murmurs, rubs or gall ops noted. ABDOMEN: Soft, nontender, no organomegaly, masses or bruits. Bowel sounds are normal in a ll 4 quadrants. EXTREMITIES: No edema. Radial pulses 2+ bilaterally. DP and PT pulses are 2+ bilaterally. SKIN: Warm and dry, capillary refill is normal, no lesions. NEUROLOGIC: Awake, alert and oriented x 3. No focal motor deficits. PSYCHIATRIC: Appropriate, affect appears normal DATA No results found for: WBC, HGB, HCT, PLTNo results found for: INR, PTT No results found for : NA, K, CL, CO2, BUN, CREA, GLUCOSE, MG, AST, ALT, DIGOXIN, BNP, TSHNo results found for: C HOL, TRIG, HDL, LDL, TSH EK06/03/19 ordered and reviewed by myself, normal sinus rhythm 60BPM, non specific T wave abnormality Last Echo: 01/27/19 CONCLUSIONS 1. Overall left ventricular systolic function is normal with an EF between 60 - 65%. 2. There is mild concentric left ventricular hypertrophy. 3. The right ventricle is normal in size and function. 4. There is mild aortic regurgitation. Last stress test: Last cath: Carotid US: AAA screening: Lower extremity US: OTHERS: ASSESSMENT & PLAN 1. Fatigue 2. Palpitations 3. HTN 4. Abnormal stress test 2014 with anterior perfusion abnormality 5. CKD 6. OA 7. Nephrolithiasis 8. 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 She also admits to palpitations and lightheadedness. She is presently wearing a Zio patch monitor and plans on mailing it in tomorrow. Her episodes of lightheade dness sound like they are possibly related to orthostatic hypotension or possibly vasovagal. Recent echo demonstrated normal LV function and mild AI. She had a prior abnormal stress te st as above but remains very physically active without any anginal chest pains. - Will follow up the result of the 2 week Zio patch monitor - discussed conservative measures to avoid orthostatic hypotension - The patient is to keep a BP log. - Continue ASA 81mg po daily - Follow up with cardiology in 3 months Thank you for allowing me to participate in the care of this patient. Primary Care Physician: MD Gloria Weaver DO 06/03/2019 documented in this enco unter Plan of Treatment Not on filedocumented as of this encounter Procedures + +--------+ + + + | Procedure Name | Priori | Date/Time | Associated Diagnosis | Comments | | | ty | | | | + +--------+ + + + | ECG 12 LEAD | Routin | 06/03/2019 | Syncope and | Results for this | | | e | 9:30 AM | collapse Fatigue, | procedure are in the | | | | PST | unspecified type | results section. | | | | | Encounter for | | | | | | consultation | | + +--------+ + + + documented in this encounter Results ECG 12 lead (06/03/2019 9:30 AM PST) + + + + + + | Component | Value | Ref Range | Performed | Pathologist | | | | | At | Signature | + + + + + + | VENTRICULAR | 60 | BPM | [facility] | | | RATE EKG | | | | | + + + + + + | ATRIAL RATE | 60 | BPM | [facility] | | + + + + + + | P-R | 122 | ms | [facility] | | | INTERVAL | | | | | + + + + + + | QRS | 76 | ms | [facility] | | | DURATION | | | | | + + + + + + | Q-T | 418 | ms | [facility] | | | INTERVAL | | | | | + + + + + + | Q-T | 418 | ms | [facility] | | | INTERVAL | | | | | | (CORRECTED) | | | | | + + + + + + | P WAVE AXIS | 26 | degrees | [facility] | | + + + + + + | QRS AXIS | 67 | degrees | [facility] | | + + + + + + | T AXIS | 17 | degrees | [facility] | | + + + + + + | INTERPRETAT | Please refer to | | [facility] | | | ION TEXT | Providers office visit | | | | | | note for Providers | | | | | | Interpretation.Confirmed | | | | | | by ICA Silt Read Only, | | | | | | ICA Mai ([id number]), | | | | | | fashion editor Wale Moyer | | | | | | ([id number]) on 06/03/2019 | | | | | | 11:20:12 AM | | | | + + + + + + + + | Specimen | + + | | + + + + + | Narrative | Performed At | + + + | | | + + + + +---------+ + + | Performing | Address | City/State/Zipcode | Phone Number | | Organization | | | | + +---------+ + + | [facility] | | | | + +---------+ + + documented in this encounter Visit Diagnoses + + | Diagnosis | + + | Essential hypertension - Primary Unspecified essential hypertension | + + | Syncope and collapse | + + | Fatigue, unspecified type | + + | Encounter for consultation Unspecified reason for consultation | + + documented in this encounter
--- OUTSIDE RECORDS SUMMARY | ~2020-03-10 | XMS | Encounter Summary ---
Demographics + + + | Address | [address] [place] [address] RD | | | [place] [phone] | + + + | Home Phone | | + + + | Preferred Language | Unknown | + + + | Marital Status | Single | + + + | Anabaptist Affiliation | Unknown | + + + | Race | White | + + + | Ethnic Group | Not or | + + + Author + + + | Author | [facility] | | | and [place] | + + + | Organization | [facility] | | | [...] Providers + +------+ + | Care Home Sales Service Professional Name | Role | Phone | + +------+ + PCP | Unavailable | + +------+ + Encounter Details +--------+ + + + + | Date | Type | Department | Care Team | Description | +--------+ + + + + | 11/17/ | Hospital | [facility] | | | | 2000 - | Encounter | MED CTR CANCER | | | | | | CENTER [address] | | | | 02/15/ | | [place] | | | | 2000 | | [address] | | | | | | [phone] | | | +--------+ + + + [...]
--- OUTSIDE RECORDS SUMMARY | ~2020-03-10 | XMS | Encounter Summary ---
Demographics + + + | Address | [address] [place] [address] RD | | | [place] [phone] | + + + | Home Phone | | + + + | Preferred Language | Unknown | + + + | Marital Status | Single | + + + | Mosque Affiliation | Unknown | + + + | Race | White | + + + | Ethnic Group | Not or | + + + Author + + + | Author | [facility] | | | and [place] | + + + | Organization | [facility] | | | [...] Team Providers + +------+ + | Care Patient Centered Care Specialist Name | Role | Phone | + +------+ + | Kartik Tran MD | PCP | | + +------+ + Reason for Visit + + + | Reason | Comments | + + + | Follow-up | 3 month | + + + Encounter Details +--------+---------+ + + + | Date | Type | Department | Care Team | Description | +--------+---------+ + + + | 09/01/ | Office | [facility] | Gloria Patton DO | Palpitations | | 2020 | Visit | CARDIOLOGY [place] | [address] | (Primary Dx); SVT | | | | [address] | [place], [place] | (supraventricular | | | | [address] | [address] | tachycardia) (HCC) | | | | [place] | | | | | | [address] | | | | | | [phone] | | | +--------+---------+ + + + Social History [...] + + + documented in this encounter Progress Gloria Bocanegra DO - 09/02/2019 9:00 AM PST [facility] Cardiology Cardiology Consult Note Reason for Consultation: fatigue Requesting Physician: Dr. 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 Interim history I last saw the patient on 06/03/2019. Since that time, her Zio patch has resulted. It dem onstrated normal sinus rhythm. She was noted to have several episodes of supraventricular t achycardia, the longest episode was 11 seconds at 192 beats per minute. She also had 2 epis odes of ventricular tachycardia, the longest of which was 16 beats at 109 beats per minute. Since we last saw each other, she reports that she has been doing well from a symptom michael dpoint. She reports that recently she has been very stressed out as her friend developed a traumatic brain injury and she was helping relocate him to an assisted living facility. She has remained very active. In 06/2019, she walked 3 miles a day. She did not walk quite as much in 07/2019, but has been feeling overall good. She denies any episodes of syncope or presyncope. She has had a low burden of palpitations. She has been doing otherwise well f rom a cardiac standpoint. She brought her blood pressure log with her, which demonstrates g ood blood pressure control. Review of Systems PAST MEDICAL & SURGICAL HISTORY Past Medical History: Diagnosis Date Angina pectoris (HCC) Arrhythmia Atopic dermatitis Cancer of breast, female (HCC) Heart murmur Hyperlipidemia Hypertension POTS (postural orthostatic tachycardia syndrome) Syncope and collapse back in 2012 Uterine cancer (HCC) History reviewed. No pertinent surgical history. MEDICATIONS Home Medications Outpatient Encounter Medications as of 09/02/2019 Medication Sig Dispense Refill aspirin 81 MG EC tablet Take 81 mg by mouth Daily. cholecalciferol (VITAMIN D-3) 75 mcg (3,000 units) tablet Take 75 mcg by mouth Daily. DULoxetine (CYMBALTA) [address] capsule Take 20 mg by mouth Daily. lisinopril (PRINIVIL, ZESTRIL) 20 mg tablet Take 20 mg by mouth Daily. Multiple Vitamins-Minerals (MULTIVITAMIN ADULT PO) Take by mouth. No facility-administered encounter medications on file as of 09/02/2019. Allergies No Known Allergies FAMILY HISTORY History [...] file Gets together: Not on file Attends yazidism service: Not on file Active member of [...] on file PHYSICAL EXAM Vital Signs: BP 122/74 | Pulse 60 | Ht 1.651 m (5' 5") | Wt 78 kg (172 lb) | SpO2 98% | BMI 28.62 kg/m Physical Exam GENERAL: Well developed, well [...] US: AAA screening: Lower extremity US: OTHERS: 14-day ZIO patch monitor 05/21/2019 Sinus rhythm with an average heart rate of 75 bpm, rare PAC and PVC. There were several sh ort episodes of paroxysmal supraventricular tachycardia the longest episode was 11 seconds a t 192 bpm. Supraventricular tachycardia was detected within 45 seconds of symptomatic patie nt events. There were 2 episodes of ventricular tachycardia the longest of which was 16 shmuel ts at 109 bpm. ASSESSMENT & PLAN 1. Fatigue 2. Palpitations 3. HTN 4. Abnormal stress test 2014 with anterior perfusion abnormality 5. CKD 6. OA 7. Nephrolithiasis 8. 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 Recently, she has been doing well and reports improvement in her symptoms. She had a recent ZIO patch monitor done which did demonstrate brief episo karen of SVT which are likely the cause of her palpitations. Since she is minimally symptomat ic, we discussed conservative management which she was open to. - discussed conservative measures to avoid orthostatic hypotension - Continue ASA 81mg po daily - Follow up with cardiology in 12 months Thank you for allowing me to participate in the care of this patient. Primary Care Physician: MD Gloria Weaver DO 09/02/2019 documented in this enco unter Plan of Treatment Not on filedocumented as of this encounter Procedures + +--------+ + + + | Procedure Name | Priori | Date/Time | Associated Diagnosis | Comments | | | ty | | | | + +--------+ + + + | DIAGNOSTIC REPORT - | | 09/17/2019 | | Results for this | | EXTERNAL SCAN | | 12:00 AM | | procedure are in the | | | | PDT | | results section. | + +--------+ + + + documented in this encounter Results DIAGNOSTIC REPORT - EXTERNAL SCAN (09/17/2019 12:00 AM PDT) + + + | Narrative | Performed At | + + + | Ordered by an | | | unspecified provider. | | + + + documented in this encounter Visit Diagnoses + + | Diagnosis | + + | Palpitations - Primary | + + | SVT (supraventricular tachycardia) (HCC) Other specified cardiac dysrhythmias | + + documented in this encounter
--- OUTSIDE RECORDS SUMMARY | ~2020-03-10 | XMS | Encounter Summary ---
Demographics + + + | Address | [address] [place] [address] RD | | | [place] [phone] | + + + | Home Phone [...] Author + + + | Author | [facility] | | | and [place] | + + + | Organization | [facility] | | | and [...] Team Providers + +------+ + | Care Continuity Director Name | Role | Phone | + +------+ + PCP | Unavailable | + +------+ + Encounter Details +--------+ + + + + | Date | Type | Department | Care Team | Description | +--------+ + + + + | 04/30/ | Hospital | [facility] | | | | 2004 - | Encounter | MED CTR GENERIC OP | | | | | | CONV DEPT [address] | | | | 07/29/ | | [place], | | | | 2005 | | [place] [address] | | | | | | [phone] | | | +--------+ + + + [...]
--- OUTSIDE RECORDS SUMMARY | ~2020-03-10 | XMS | Encounter Summary ---
Demographics + + + | Address | [address] [place] [address] RD | | | [place] [phone] | + + + | Home Phone | | + + + | Preferred Language | Unknown | + + + | Marital Status | Single | + + + | Jainism Affiliation | Unknown | + + + | Race | White | + + + | Ethnic Group | Not or | + + + Author + + + | Author | [facility] | | | and [place] | + + + | Organization | [facility] | | [...] Team Providers + +------+ + | Care Extension Agent Name | Role | Phone | + +------+ + PCP | Unavailable | + +------+ + Encounter Details +--------+ + + + + | Date | Type | Department | Care Team | Description | +--------+ + + + + | 11/22/ | Hospital | [facility] | | | | 2003 - | Encounter | MED CTR CANCER | | | | | | CENTER [address] | | | | 03/22/ | | [place] | | | | 2003 | | [address] | | | | | | [phone] | | | +--------+ + + + [...]
[~2020-03-10 12:35] MED LIST: ADULT LOW DOSE81 MG PO; CALCIUM + D3 E1 EACH PO; CITALOPRAM HBR10 MG PO; CO Q-10100 MG PO; FAMOTIDINE40 MG PO; FLOMAX0.4 MG PO; FOLIC ACID1 MG PO; IBUPROFEN600 MG PO; LISINOPRIL20 MG PO; MAPAP325 MG PO; MULTI-DAY VITA1 EACH PO; NORCO 5-325 TA1 EACH PO; OXYCODON-ACETA1 EAC2 PO; PRILOSEC20 MG PO; VITAMIN C500 MG PO; VITAMIN D34000 UNIT PO; ZOFRAN ODT8 MG PO
== END 2020-03-10 15:27 | disposition home or self-care (01) ==
LOC: ED 12:35
DX: R10.13 Epigastric pain (principal); R74.8 Abnormal levels of other serum enzymes; G47.30 Sleep apnea, unspecified; Z79.899 Other long term (current) drug therapy
CPT/HCPCS: 80053; 81001; 83690; 83735; 85025; 99284

== ENCOUNTER 2021-04-30 10:26 | Emergency (ER) | payer OTHER, MEDICARE ==
[~2021-04-30] VITALS: Ht 165.1 cm; Wt 74.8 kg
== END 2021-04-30 12:01 | disposition home or self-care (01) ==
LOC: ED 10:26
DX: S93.402A Sprain of unspecified ligament of left ankle, initial encounter (principal); X50.1XXA Overexertion from prolonged static or awkward postures, initial encounter; G47.30 Sleep apnea, unspecified; Z79.899 Other long term (current) drug therapy
CPT/HCPCS: 73610; 99283-25

== ENCOUNTER 2023-05-15 11:27 | Emergency (ER) | payer MEDICARE, OTHER ==
[~2023-05-15] VITALS: Ht 165.1 cm; Wt 74.8 kg
[2023-05-15] MEDS ORDERED: AVAPRO75 MG PO (11:37)
[2023-05-15] MEDS ORDERED: COREG6.25 MG PO (11:38)
[2023-05-15] MEDS ORDERED: VITAMIN D31250 MC1 PO (11:39)
[2023-05-15 11:46] LABS: BASOPHILS 2.5 % (0-2); EOSINOPHILS 3.7 % (0-6); HEMATOCRIT 44.1 % (35.0-50.0); HEMOGLOBIN 14.9 g/dL (12.0-18.0); LYMPHOCYTES 37.9 % (24-44); MCH 31.3 (27-36); MCHC 33.8 g/dl (30-36); MCV 92.6 fl (81-99); MONOCYTES 7.5 % (0-12); NEUTROPHILS 48.4 % (39-80); PLATELET COUNT 229 K/uL (140-440); RBC 4.76 M/ul (4.3-5.7); RDW 13.5 (10.5-15.0)
[2023-05-15 12:09] LABS: ALBUMIN 4.2 g/dL (3.4-5.0); ALBUMIN/GLOBULIN RATIO 1.24 (1.1-2.4); BILIRUBIN, TOTAL 0.9 ng/dL (0.2-1.0); BUN/CREATININE RATIO 14.59 (6.0-28.6); CALCIUM 9.4 mg/dL (8.5-10.1); CREATININE, SERUM 1.37 mg/dL (0.55-1.02); MAGNESIUM 2.1 mg/dL (1.8-2.4); PROTEIN, TOTAL 7.6 g/dL (6.4-8.2)
[2023-05-15 12:43] VITALS: BP 127/81
--- NOTE | 2023-05-15 23:06 | EKG ---
[facility] [address] [place], [place] [address] Signed Normal sinus rhythm Rightward axis ST \T\ T wave abnormality, consider anterior ischemia Abnormal ECG When compared with ECG of 02-FEB-2018 11:25, T wave inversion more evident in Anterior leads Confirmed by Yvon Cash MD () on 05/15/2023 11:06:14 PM Electronically Signed By: YVON CASH MD 05/15/23 [id number] PATIENT NAME: NEREYDA [place] Electrocardiogram DATE OF : 48 PHYSICIAN: YVON CASH MD REPORT #: [id number] REPORT IS CONFIDENTIAL AND NOT TO BE RELEASED WITHOUT AUTHORIZATION
== END 2023-05-15 12:43 | disposition home or self-care (01) ==
LOC: ED 11:27
PROVIDERS: Emergency Medicine
DX: R07.89 Other chest pain (principal); G47.30 Sleep apnea, unspecified; I10 Essential (primary) hypertension; Z79.899 Other long term (current) drug therapy
CPT/HCPCS: 36415; 71045; 80053; 83735; 84484; 85025; 93005; 93010; 99285-25

== ENCOUNTER 2024-07-10 13:49 | Emergency (ER) | payer MEDICARE, OTHER ==
[~2024-07-10] VITALS: Ht 165.1 cm; Wt 89.8 kg
[~2024-07-10 13:49] MED LIST changes: +AVAPRO75 MG PO; +COREG6.25 MG PO; +VITAMIN D31250 MC1 PO
[2024-07-10] MEDS ORDERED: COLCRYS0.6 MG PO (14:09)
[2024-07-10 14:57] LABS: BASOPHILS 1.5 % (0-2); EOSINOPHILS 3.2 % (0-6); HEMATOCRIT 44.4 % (35.0-50.0); HEMOGLOBIN 15.5 g/dL (12.0-18.0); LYMPHOCYTES 31.2 % (24-44); MCH 32.3 (27-36); MCHC 34.8 g/dl (30-36); MCV 92.6 fl (81-99); MONOCYTES 8.2 % (0-12); NEUTROPHILS 55.9 % (39-80); PLATELET COUNT 219 K/uL (140-440); RBC 4.79 M/ul (4.3-5.7); RDW 13.4 (10.5-15.0)
[2024-07-10 15:41] LABS: ALBUMIN 3.8 g/dL (3.4-5.0); ALBUMIN/GLOBULIN RATIO 1.03 (1.1-2.4); ANION GAP 15.5 (7-21); BILIRUBIN, TOTAL 0.7 ng/dL (0.2-1.0); BUN/CREATININE RATIO 17.05 (6.0-28.6); CALCIUM 9.4 mg/dL (8.5-10.1); CREATININE, SERUM 1.29 mg/dL (0.55-1.02); POTASSIUM 4.5 mmol/L (3.5-5.1); PROTEIN, TOTAL 7.5 g/dL (6.4-8.2); TSH, 3RD GENERATION 1.425 uIU/mL (0.358-3.740)
[2024-07-10 17:12] VITALS: BP 131/92
== END 2024-07-10 17:12 | disposition home or self-care (01) ==
LOC: ED 13:49
PROVIDERS: Emergency Medicine
DX: R41.0 Disorientation, unspecified (principal); I10 Essential (primary) hypertension; M32.9 Systemic lupus erythematosus, unspecified; G47.30 Sleep apnea, unspecified; M10.9 Gout, unspecified; Z88.8 Allergy status to other drugs, medicaments and biological substances; Z79.899 Other long term (current) drug therapy
CPT/HCPCS: 36415; 70450; 80053; 81001; 84443; 85025; 99285-25